=== PATIENT | female | born 1940 | race American Indian/Alaskan Native ===

== ENCOUNTER 2016-11-23 08:32 | Emergency (ER) | payer MEDICARE ==
[2016-11-23 09:22] LABS: Basophils % (Auto) 1.3 % (0.0-1.8); Eosinophils % (Auto) 5.8 % (0.0-4.3); Hematocrit 36.7 % (30.3-42.9); Hemoglobin 11.8 gm/dl (10.1-14.3); Mean Corpuscular HGB Conc 32 % (30-34); Mean Corpuscular Hemoglobin 29 pg (28-32); Mean Corpuscular Volume 89 fl (79-97); Platelet Count 203 K/mm3 (140-440); Red Blood Count 4.13 M/mm3 (3.65-5.03); Red Cell Distribution Width 14.9 % (13.2-15.2); White Blood Count 6.5 K/mm3 (4.5-11.0)
--- NOTE | 2016-11-23 09:35 | Emergency Department Report ---
ED General Adult HPI - General Chief complaint: Chest Pain Stated complaint: CHEST PAIN Time Seen by Provider: 11/23/16 09:20 Source: patient, EMS (ems notes not available at time of chart dictation), RN notes reviewed, old records reviewed Mode of arrival: Stretcher Limitations: Other (dementia) - History of Present Illness Initial comments: Primary care Dr.: Dr. Slade Past medical history: High cholesterol, hypertension, dementia Past medical history also includes left breast cancer status post myomectomy. This is a 76-year-old female. She is previously unknown to me. Brought to the hospital by EMS for chest pain. Of note, patient had a negative nuclear stress test January 2015. Patient denies shortness of breath, vomiting, diaphoresis. She denies leg pain or leg swelling. She states the chest pain was central. It did not radiate to the back, arms or neck. It is currently resolved. Cannot describe exacerbating or relieving factors. No headache. No abdominal pain. No irritative or obstructive urinary symptoms. -: Gradual Location: chest Radiation: non-radiation Consistency: now resolved Improves with: none Worsens with: none Associated Symptoms: chest pain - Related Data Home Medications Medication Instructions Recorded Confirmed Last Taken Triamter/Hctz 37.5-25 mg 1 tab PO DAILY 01/04/15 08/09/15 08/08/15 Verapamil HCl [Verapamil ER] 240 mg PO DAILY 01/04/15 08/09/15 08/08/15 Previous Rx's Medication Instructions Recorded Last Taken Type Meclizine [Antivert] 25 mg PO TID PRN #20 tablet 08/09/15 Unknown Rx Allergies Allergy/AdvReac Type Severity Reaction Status Date / Time No Known Allergies Allergy Verified 01/28/14 20:09 ED Review of Systems ROS: Stated complaint: CHEST PAIN Other details as noted in HPI Constitutional: denies: fever, malaise, weakness Eyes: denies: vision change ENT: denies: epistaxis Respiratory: see HPI Cardiovascular: chest pain Gastrointestinal: denies: vomiting Genitourinary: denies: urgency, dysuria, discharge Musculoskeletal: denies: back pain, joint swelling, arthralgia Skin: denies: rash, lesions Neurological: denies: weakness Psychiatric: as per HPI ED Past Medical Hx - Past Medical History Previous Medical History?: Yes Hx Hypertension: Yes Hx of Cancer: Yes (breast) Hx Arthritis: Yes Hx Dementia: Yes (early stages) Additional medical history: Early stages of dementia - Surgical History Past Surgical History?: Yes Additional Surgical History: mastectomy left - Social History Smoking Status: Never Smoker Substance Use Type: None - Medications Home Medications: Home Medications Medication Instructions Recorded Confirmed Last Taken Type Triamter/Hctz 37.5-25 mg 1 tab PO DAILY 01/04/15 08/09/15 08/08/15 History Verapamil HCl [Verapamil ER] 240 mg PO DAILY 01/04/15 08/09/15 08/08/15 History Meclizine [Antivert] 25 mg PO TID PRN #20 tablet 08/09/15 Unknown Rx ED Physical Exam - General General appearance: alert, in no apparent distress - Head Head exam: Present: atraumatic, normocephalic - Eye Eye exam: Present: normal appearance, EOMI. Absent: nystagmus - ENT ENT exam: Present: normal exam, normal orophraynx, mucous membranes moist, normal external ear exam - Neck Neck exam: Present: normal inspection, full ROM. Absent: tenderness, meningismus - Respiratory Respiratory exam: Present: normal lung sounds bilaterally. Absent: respiratory distress, wheezes, rales, rhonchi, stridor, chest wall tenderness - Cardiovascular Cardiovascular Exam: Present: regular rate, normal rhythm, normal heart sounds. Absent: bradycardia, tachycardia, irregular rhythm, systolic murmur, diastolic murmur, rubs, gallop - GI/Abdominal GI/Abdominal exam: Present: soft, normal bowel sounds. Absent: distended, tenderness, guarding, rebound, rigid, pulsatile mass - Extremities Exam Extremities exam: Present: normal inspection, full ROM, normal capillary refill. Absent: tenderness, pedal edema, joint swelling, calf tenderness - Back Exam Back exam: Present: normal inspection, full ROM. Absent: tenderness, CVA tenderness (R), CVA tenderness (L), muscle spasm, paraspinal tenderness, vertebral tenderness - Neurological Exam Neurological exam: Present: alert, oriented X3, normal gait, other (Extraocular movements intact. Tongue midline. No facial droop. Facial sensation intact to light touch in the V1, V2, V3 distribution bilaterally. 5 and 5 strength in 4 extremities.. Sensation is intact to light touch in 4 extremities.). Absent : motor sensory deficit - Psychiatric Psychiatric exam: Present: normal affect, normal mood - Skin Skin exam: Present: warm, dry, intact, normal color. Absent: rash ED Course Vital Signs 11/23/16 11/23/16 11/23/16 08:34 08:41 08:44 Temperature 98.1 F Pulse Rate 81 79 78 Respiratory 14 17 12 Rate Blood Pressure 179/84 179/84 Blood Pressure [Left] O2 Sat by Pulse 95 95 Oximetry 11/23/16 11/23/16 11/23/16 08:51 09:00 09:11 Temperature Pulse Rate 74 78 79 Respiratory 14 17 10 L Rate Blood Pressure 161/83 167/92 167/92 Blood Pressure [Left] O2 Sat by Pulse 95 95 95 Oximetry 11/23/16 11/23/16 11/23/16 09:21 09:59 10:01 Temperature Pulse Rate 78 80 Respiratory 16 19 Rate Blood Pressure 163/86 163/86 183/93 Blood Pressure [Left] O2 Sat by Pulse 97 94 Oximetry 11/23/16 11/23/16 11/23/16 10:11 10:21 10:30 Temperature Pulse Rate 74 78 76 Respiratory 17 13 13 Rate Blood Pressure 183/93 149/82 163/86 Blood Pressure [Left] O2 Sat by Pulse 97 97 90 Oximetry 11/23/16 11/23/16 11/23/16 10:41 10:51 11:00 Temperature Pulse Rate Respiratory 9 L 12 16 Rate Blood Pressure 163/86 155/104 158/91 Blood Pressure [Left] O2 Sat by Pulse 97 96 96 Oximetry 11/23/16 11/23/16 11/23/16 11:11 13:57 14:00 Temperature 98.4 F Pulse Rate 80 Respiratory 14 16 16 Rate Blood Pressure 158/91 Blood Pressure 140/85 [Left] O2 Sat by Pulse 97 99 99 Oximetry - Reevaluation(s) Reevaluation #1: 11/23/16 11:20 Differential diagnosis: Acute coronary syndrome, GERD, gastritis, reflux, costochondritis, pulmonary embolus Assessment and plan: 76-year-old female with resolved chest pain. EKG is morphologically abnormal, appears unchanged from prior EKG from 03/25/2015. Patient had a negative nuclear stress test in January 2015. Patient is chest pain-free at this time. Of note, in the past, patient has had negative CT angiograms of the chest, given the fact that she has a history of breast cancer, and is from an assisted living facility, a d-dimer was sent to risk stratify the patient for pulmonary embolus, was found to be elevated. A CT angiogram of the chest is pending at this time. Reevaluation #2: 11/23/16 11:24 case d/w Adebayo Almaraz cardiology Patient has follow-up with cardiology at the following date and time: tuesday 3, 10 am, Dr Linda Giles Reevaluation #3: 11/23/16 12:59 Troponins negative 2. Patient remains chest pain-free. Repeat vital signs are unremarkable. Patient resting comfortably. Case is discussed with the patient's family members. Patient will be discharged to follow-up with her outpatient primary care doctor and with the aforementioned cardiology appointment. Incidental nonspecific findings in the CT scan the chest are related to the family. They will follow the patient's primary care doctor. Return precautions are reviewed. ED Medical Decision Making - Lab Data Result diagrams: 11/23/16 09:04 11/23/16 09:04 Vital Signs 11/23/16 11/23/16 11/23/16 08:34 08:41 08:44 Temperature 98.1 F Pulse Rate 81 79 78 Respiratory 14 17 12 Rate Blood Pressure 179/84 179/84 O2 Sat by Pulse 95 95 Oximetry 11/23/16 11/23/16 11/23/16 08:51 09:00 09:11 Temperature Pulse Rate 74 78 79 Respiratory 14 17 10 L Rate Blood Pressure 161/83 167/92 167/92 O2 Sat by Pulse 95 95 95 Oximetry 11/23/16 09:21 Temperature Pulse Rate 78 Respiratory 16 Rate Blood Pressure 163/86 O2 Sat by Pulse 97 Oximetry Labs 11/23/16 11/23/16 11/23/16 09:04 09:04 09:52 WBC 6.5 RBC 4.13 Hgb 11.8 Hct 36.7 MCV 89 MCH 29 MCHC 32 RDW 14.9 Plt Count 203 Lymph % (Auto) 33.9 [place] % (Auto) 11.0 H Eos % (Auto) 5.8 H Baso % (Auto) 1.3 Lymph # 2.2 [place] # 0.7 Eos # 0.4 Baso # 0.1 Seg Neutrophils % 48.0 Seg Neutrophils # 3.1 PT 13.8 INR 1.07 D-Dimer 676.56 H Sodium 143 Potassium 3.9 Chloride 102.3 Carbon Dioxide 27 Anion Gap 18 BUN 14 Creatinine 0.9 Estimated GFR > 60 BUN/Creatinine Ratio 15.55 Glucose 92 Calcium 8.8 Troponin T < 0.010 Urine Color Urine Turbidity Urine pH Ur Specific [place] Urine Protein Urine Glucose (UA) Urine Ketones Urine Blood Urine Nitrite Urine Bilirubin Urine Urobilinogen Ur Leukocyte Esterase Urine WBC (Auto) Urine RBC (Auto) U Epithel Cells (Auto) Urine Mucus 11/23/16 10:03 WBC RBC Hgb Hct MCV MCH MCHC RDW Plt Count Lymph % (Auto) [place] % (Auto) Eos % (Auto) Baso % (Auto) Lymph # [place] # Eos # Baso # Seg Neutrophils % Seg Neutrophils # PT INR D-Dimer Sodium Potassium Chloride Carbon Dioxide Anion Gap BUN Creatinine Estimated GFR BUN/Creatinine Ratio Glucose Calcium Troponin T Urine Color Straw Urine Turbidity Clear Urine pH 7.0 Ur Specific [place] 1.010 Urine Protein <15 mg/dl Urine Glucose (UA) Neg Urine Ketones Neg Urine Blood Neg Urine Nitrite Neg Urine Bilirubin Neg Urine Urobilinogen < 2.0 Ur Leukocyte Esterase Sm Urine WBC (Auto) 2.0 Urine RBC (Auto) 5.0 U Epithel Cells (Auto) 2.0 Urine Mucus Few - EKG Data Interpretation: no acute changes, unchanged when compared t 11/23/16 11:22 Normal sinus, 77 bpm, left axis deviation, left ventricular hypertrophy, poor quality progression, abnormal EKG, not morphologically consistent with STEMI, appears unchanged from prior EKG from 03/25/2015. EKG #2 demonstrates normal sinus, 76 bpm, persistent left axis deviation, persistent poor R progression, prolonged QTC, not morphologically consistent with STEMI, appears unchanged from prior EKG. 11/23/16 13:27 - Radiology Data Radiology results: report reviewed, image reviewed X-ray chest negative for acute disease. CT angiogram of the chest negative for pulmonary embolus. Incidental pulmonary lesion is noted. Uncertain if malignant. Patient will follow up with primary care for this. Critical care attestation.: If time is entered above; I have spent that time in minutes in the direct care of this critically ill patient, excluding procedure time. ED Disposition Clinical Impression: Chest pain Disposition: DISCHARGED TO HOME OR SELFCARE Is pt being admited?: No Does the pt Need Aspirin: No Condition: Good Instructions: Chest Pain (ED) Additional Instructions: Continue current outpatient medications. Follow up with the structured cabling technician on your appointment, December 03, at 10:00 in the morning. Please make certain to follow up with your primary care doctor for a formal referral to this cardiology appointment. Blood pressure was elevated, this should be followed up by primary care doctor or structured cabling technician within the next 2-3 weeks. Long-term complications of hypertension/elevated blood pressure includes stroke , heart attack, disability, , paralysis, permanent loss of quality of life. CT scan of the chest and was treated nonspecific lesions in the lungs. This should be followed up by a primary care doctor within the recommended timeframe. Not following up within the recommended timeframe may result in undiagnosed tumor/cancer/malignancy. Please return to the ER right away with new pain, worsened pain, migration of pain, fevers or chills, intractable nausea or vomiting, inability to tolerate liquid feeds. Referrals: NAVI SLADE JR, MD [Primary Care Provider] - 3-5 Days DEBI PLEITEZ MD [Staff Physician] - 3-5 Days
[2016-11-23 09:38] LABS: BUN/Creatinine Ratio 15.55; Blood Urea Nitrogen 14 mg/dL (7-17); Calcium 8.8 mg/dL (8.4-10.2); Carbon Dioxide 27 mmol/L (22-30); Glucose 92 mg/dL (65-100)
[2016-11-23 09:39] LABS: Anion Gap 18 mmol/L; Chloride 102.3 mmol/L (98-107); Potassium 3.9 mmol/L (3.6-5.0); Sodium 143 mmol/L (137-145)
[2016-11-23 10:18] LABS: INR 1.07 (0.87-1.13)
[2016-11-23 10:19] LABS: Bilirubin,Urine NEG (Negative); Blood,Urine NEG (Negative); Ketones,Urine NEG (Negative); Leukocyte Esterase,Urine SM (Negative); Mucus,Urine FEW /HPF; Nitrite,Urine NEG (Negative); Protein,Urine <15 mg/dL mg/dL (Negative); Urobilinogen,Urine < 2.0 mg/dL (<2.0)
--- NOTE | 2016-11-23 11:05 | XRay Report ---
ROUTINE CHEST, TWO VIEWS: HISTORY: chest pain. The trachea, heart, mediastinal contour, lung clements and bony thorax are unremarkable. IMPRESSION: No acute cardiopulmonary process. No significant change since 03/26/15.
[2016-11-23] MEDS ORDERED: NACL ONE (11:16)
--- NOTE | 2016-11-23 11:50 | Cat Scan Report ---
CT angiography of the chest with 3-D reconstructed images. History: Chest pain. Findings: There is no evidence of pulmonary emboli. There is a 6 mm nodular opacity in the lateral aspect of the right upper lobe, best seen on image #60 of series 2. Otherwise the lungs are clear. There is no pleural fluid. Small nodes are noted in the mediastinum and hilar regions. A hepatic cyst in the superior aspect of the left lobe of the liver has decreased in size since the previous study in March of 2015. Impression: 1. No evidence of pulmonary emboli. 2. 6 mm right upper lobe pulmonary nodule is nonspecific. This could represent benign or malignant process.
[2016-11-23 13:58] VITALS: BP 140/85
== END 2016-11-23 14:01 | disposition home or self-care (01) ==
LOC: ED 08:32
DX: R07.89 Other chest pain (principal); I10 Essential (primary) hypertension; M19.90 Unspecified osteoarthritis, unspecified site; F03.90 Unspecified dementia, unspecified severity, without behavioral disturbance, psychotic disturbance, mood disturbance, and anxiety; Z85.3 Personal history of malignant neoplasm of breast; Z90.12 Acquired absence of left breast and nipple
CPT/HCPCS: 36415; 51701; 71020; 71275; 80048; 81001; 84484; 85025; 85379; 85610; 87086; 93005; 93010; 99285; Q9967

== ENCOUNTER 2017-10-19 09:21 | Emergency (ER) | payer MEDICARE ==
[2017-10-19] MEDS ORDERED: TYLENOL ONE (10:34)
[2017-10-19 10:36] VITALS: BP 167/102
[2017-10-19] MEDS ORDERED: TYLENOL PO ONE (10:36)
== END 2017-10-19 13:30 | disposition left against medical advice (07) ==
LOC: ED 09:21
DX: M79.1 Myalgia (principal); Z53.21 Procedure and treatment not carried out due to patient leaving prior to being seen by health care provider
CPT/HCPCS: 87400